=== PATIENT | female | born 1995 | race Caucasian/White ===

== ENCOUNTER 2017-01-27 15:37 | Outpatient (CLI) | payer OTHER ==
[~2017-01-27] VITALS: Ht 167.6 cm; Wt 86.6 kg
[2017-01-29] MEDS ORDERED: OXYC-302 PO (13:16)
[2017-01-29] MEDS ORDERED: IBUP-1222 PO (13:17)
== END 2017-01-27 17:32 | disposition home or self-care (01) ==
LOC: LDOP 15:37
PROVIDERS: ATTEND Obstetrics & Gynecology Gynecology
DX: O62.9 Abnormality of forces of labor, unspecified (principal); Z3A.39 39 weeks gestation of pregnancy
CPT/HCPCS: 59025; 81003; 82570; 84156; 99201; G0463

== ENCOUNTER 2017-01-28 01:58 | Emergency (ER) | payer OTHER ==
[~2017-01-28] VITALS: Ht 170.2 cm; Wt 97.0 kg
[2017-01-28 02:02] VITALS: BP 158/89
[2017-01-28] MEDS ORDERED: LIDOCAINE 1%, 20ML ONE (02:18)
[2017-01-28] MEDS ORDERED: OXYTOCIN 10 UNITS/ML, 1ML ONE (02:19)
[2017-01-28] MEDS ORDERED: NEWBORN KIT ONE (02:20)
[2017-01-28] MEDS ORDERED: OXYTOCIN 30U/ 0.9% NaCL 500ML 500 ML IV PRN (02:30)
[2017-01-29] MEDS ORDERED: OXYC-302 PO (13:16)
[2017-01-29] MEDS ORDERED: IBUP-1222 PO (13:17)
== END 2017-01-28 02:31 | disposition other institution (70) ==
LOC: ED 02:13
DX: O60.13X0 Preterm labor second trimester with preterm delivery third trimester, not applicable or unspecified (principal); Z3A.00 Weeks of gestation of pregnancy not specified
CPT/HCPCS: 99285